=== PATIENT | male | born 1925 | race Caucasian/White ===

== ENCOUNTER 2016-05-31 20:36 | Emergency (ER) | payer OTHER ==
[~2016-05-31] VITALS: Ht 167.6 cm; Wt 65.7 kg
[~2016-05-31 20:36] MED LIST: ASPIRIN E.C.81 M1 PO; CALCIUM 250+D1 EACH PO; CALCIUM PO; COL-RITE100 M1 PO; COUMADIN2.5 MG PO; Claritin,Alavart PO; Coumadin Daily Dose PO; DOCUSATE SODIU100 MG PO; ENALAPRIL MALEAT5 MG PO; EUCERIN CREME57 GM TP; FLUNISOLIDE25 ML BOTH NARES; GLIPIZIDE5 MG PO; GLUCOTROL5 MG PO; Glucotrol PO; I VITE PO; KENALOG,ARISTOC80 GM TP; LIDEX 0.05% CRE60 GM TP; LOPRESSOR25 MG PO; MECLIZINE HCL12.5 M1 PO; METOPROLOL TART25 MG PO; MINITRAN1 EAC3 TD; MULTIVITAMIN; NITRO-DUR1 EAC3 TD; Norvasc PO; PANTOPRAZOLE PO; PRESERVISION T1 EACH PO; PROTONIX20 MG PO; PROTONIX40 MG PO; SIMVASTATIN40 MG PO; SIMVISTATIN; TRAMADOL HCL50 MG PO; TRAZODONE HCL50 MG PO; ULTRAM50 MG PO; UREA85 GM TP; VASOTEC5 M1 PO; VITAMIN B-12250 MCG PO; ZOCOR40 MG PO; [UNRECOGNIZED DRUG - OTHER]; [UNRECOGNIZED DRUG - OTHER] PO; [UNRECOGNIZED DRUG - OTHER] TP
[2016-05-31 21:43] LABS: ADD MIUA? NO; BILIRUBIN NEGATIVE; BLOOD NEGATIVE; COLOR YELLOW ((YELLOW)); GLUCOSE (STRIP) NEGATIVE; KETONES NEGATIVE; LEUKOCYTES NEGATIVE; NITRITE NEGATIVE; PROTEIN (STRIP) NEGATIVE; SPECIFIC GRAVITY 1.022 (1.000-1.030); UCUL ADDED? NO
[2016-05-31 22:54] LABS: EOSINOPHIL COUNT 0.3 K/uL (0-0.3); HEMATOCRIT 42.3 % (38.0-50.0); IMMATURE GRANULOCYTE (%) 0.1 % (0.0-0.7); IMMATURE GRANULOCYTE COUNT 0.1 K/uL; LYMPHOCYTE COUNT 1.2 K/uL (1.0-2.8); MCH 30.7 PG (29.0-34.0); MCHC 34.3 G/DL (30.0-36.0); MCV 89.4 FL (86-99); MONOCYTE (%) 8.8 % (3-12); MONOCYTE COUNT 0.7 K/uL (0-0.8); NEUTROPHIL (%) 73.5 % (45-76); PLATELET COUNT 111 K/uL (156-360); RBC DIS.WIDTH-CV 14.1 % (11.8-14.6); RBC DIS.WIDTH-SD 45.3 % (39-53); RED BLOOD COUNT 4.73 M/uL (4.00-5.50); WHITE BLOOD COUNT 8.2 K/uL (4.1-10.2)
[2016-05-31 22:59] LABS: MEAN PLAT.VOLUME 10.8 uM^3 (9.0-12.4)
[2016-05-31 23:07] LABS: CHLORIDE 104 mEq/L (99-109); POTASSIUM 4.8 mEq/L (3.7-5.4); SODIUM 139 mEq/L (136-147)
[2016-05-31 23:09] LABS: GLUCOSE 156 mg/dL (70-99)
[2016-05-31 23:10] LABS: ANION GAP 11 MEQ/L (2-14)
[2016-05-31 23:11] LABS: TOTAL BILIRUBIN 0.7 mg/dL (0.0-1.0)
[2016-05-31 23:12] LABS: ALKALINE PHOSPHATASE 57 IU/L (3-129); SERUM ETHYL ALCOHOL < 10 mg/dL
[2016-05-31 23:13] LABS: GFR ESTIMATE (CALCULATED) > 59 mL/min/
[2016-05-31 23:14] LABS: UREA NITROGEN (BUN) 25 mg/dL (9-23)
[2016-06-01 02:55] VITALS: BP 166/95
== END 2016-06-01 02:55 | disposition home or self-care (01) ==
LOC: EME 20:36
PROVIDERS: Emergency Medicine
DX: F99 Mental disorder, not otherwise specified (principal); R41.9 Unspecified symptoms and signs involving cognitive functions and awareness; E11.9 Type 2 diabetes mellitus without complications; I10 Essential (primary) hypertension; I25.10 Atherosclerotic heart disease of native coronary artery without angina pectoris; Z95.1 Presence of aortocoronary bypass graft; Z87.891 Personal history of nicotine dependence
CPT/HCPCS: 80053; 81003; 85025; 90839; 99281; 99285; G0480